=== PATIENT | male | born 1950 | race Caucasian/White ===

== ENCOUNTER 2021-07-05 19:11 | Inpatient (IN) | payer MEDICARE ==
[~2021-07-05] VITALS: Ht 180.3 cm; Wt 93.7 kg
[2021-07-05 22:29] LABS: HEMOGLOBIN 11.1 gm/dl (14.0-17.5); RED BLOOD COUNT 4.14 M/UL (4.20-5.50); WHITE BLOOD COUNT 7.6 K/UL (4.5-11.0)
[2021-07-05 23:21] LABS: BUN/CREATININE RATIO 15 (0-10)
[2021-07-06] MEDS ORDERED: ATORVASTATIN CA40 MG PO (10:50)
[2021-07-06] MEDS ORDERED: FUROSEMIDE40 MG PO (10:51)
[2021-07-06] MEDS ORDERED: CATAPRES 0.1MG0.1 MG PO (10:51)
[2021-07-06] MEDS ORDERED: CALCIUM 600 +1 EA12 PO (10:51)
[2021-07-06] MEDS ORDERED: HYDROCODON-ACE1 EAC4 PO (10:52)
[2021-07-06] MEDS ORDERED: ISOSORBIDE MONO30 MG PO (10:52)
[2021-07-06] MEDS ORDERED: GABAPENTIN600 MG PO (10:52)
[2021-07-06] MEDS ORDERED: POTASSIUM CHLO10 ME1 PO (10:53)
[2021-07-06] MEDS ORDERED: OMEPRAZOLE40 MG PO (10:53)
[2021-07-06] MEDS ORDERED: VITAMIN D21250 MCG PO (10:54)
[2021-07-06] MEDS ORDERED: LO-DOSE ASPIRIN81 MG PO (10:54)
[2021-07-06] MEDS ORDERED: TRESIBA FL100 UNIT/1 SQ (11:05)
[2021-07-09 08:14] LABS: ANTISTREPTOLYSIN O AB <20.0 IU/mL (0.0-200.0); COMPLEMENT C3, SERUM 127 mg/dL (82-167); COMPLEMENT C4, SERUM 28 mg/dL (12-38)
[2021-07-09 10:14] LABS: HBSAG SCREEN Negative (Negative); HEP B CORE AB, TOT Negative (Negative); HEP C VIRUS AB 0.2 (0.0-0.9)
[2021-07-09 15:09] LABS: ANTI-DSDNA ANTIBODIES 1 IU/mL (0-9)
[2021-07-10 06:05] LABS: RED BLOOD COUNT 4.21 M/UL (4.20-5.50); WHITE BLOOD COUNT 6.7 K/UL (4.5-11.0)
[2021-07-10] MEDS ORDERED: COZAAR25 MG PO (08:54)
[2021-07-10] MEDS ORDERED: NORVASC5 MG PO (08:54)
[2021-07-11 14:10] LABS: A/G RATIO 0.8 (0.7-1.7); ALBUMIN 1.7 g/dL (2.9-4.4); ALPHA-1-GLOBULIN 0.2 g/dL (0.0-0.4); ALPHA-2-GLOBULIN 1.2 g/dL (0.4-1.0); ATYPICAL PANCA <1:20 titer (Neg:<1:20); BETA GLOBULIN 0.7 g/dL (0.7-1.3); CYTOPLASMIC (C-ANCA) <1:20 titer (Neg:<1:20); GAMMA GLOBULIN 0.3 g/dL (0.4-1.8); GLOBULIN, TOTAL 2.3 g/dL (2.2-3.9); IMMUNOGLOBULIN A, QN, SERUM 139 mg/dL (61-437); IMMUNOGLOBULIN G, QN, SERUM 345 mg/dL (603-1613); IMMUNOGLOBULIN M, QN, SERUM 45 mg/dL (15-143); M-SPIKE Not Observed g/dL (Not Observed); PERINUCLEAR (P-ANCA) <1:20 titer (Neg:<1:20)
== END 2021-07-10 12:02 | disposition home or self-care (01) | DRG 682 ==
LOC: ER1 19:11 → CDU 07-06 00:43 → MED SURG 4 07-06 00:43
PROVIDERS: Internal Medicine; Internal Medicine Nephrology; Nurse Practitioner; ADMIT Internal Medicine
PROC: B24BZZZ Ultrasonography of Heart with Aorta (ICD-10-PCS; principal; 2021-07-06)
DX: N17.9 Acute kidney failure, unspecified (principal); I50.33 Acute on chronic diastolic (congestive) heart failure; I13.0 Hypertensive heart and chronic kidney disease with heart failure and stage 1 through stage 4 chronic kidney disease, or unspecified chronic kidney disease; Z20.822 Contact with and (suspected) exposure to COVID-19; I25.10 Atherosclerotic heart disease of native coronary artery without angina pectoris; N18.30 Chronic kidney disease, stage 3 unspecified; N04.9 Nephrotic syndrome with unspecified morphologic changes; E11.22 Type 2 diabetes mellitus with diabetic chronic kidney disease; I16.0 Hypertensive urgency; Z90.49 Acquired absence of other specified parts of digestive tract; Z95.1 Presence of aortocoronary bypass graft; Z90.89 Acquired absence of other organs; Z98.890 Other specified postprocedural states; Z88.8 Allergy status to other drugs, medicaments and biological substances; Z82.49 Family history of ischemic heart disease and other diseases of the circulatory system; Z79.4 Long term (current) use of insulin; Z79.82 Long term (current) use of aspirin
CPT/HCPCS: ECHO; 0240U; 36415; 71045; 80048; 80053; 80076; 81001; 82550; 82553; 82570; 82784; 82962; 83520; 83735; 83880; 83883; 84132; 84133; 84155; 84156; 84165; 84300; 84439; 84443; 84484; 85025; 85027; 86038; 86060; 86160; 86162; 86225; 86256; 86334; 86704; 86706; 86708; 86803; 87340; 89050; 93005; 93306; 96374; 99285; J1650; J1940